=== PATIENT | female | born 1955 | race Native Hawaiian/Other Pacific Islander ===

== ENCOUNTER 2016-05-27 09:34 | Emergency (ER) | payer BC ==
[~2016-05-27] VITALS: Ht 172.7 cm; Wt 126.1 kg
[~2016-05-27 09:34] MED LIST: ADULT ASA81 MG OR; DEXL60CA4 PO; LISI20TA11 PO; SIMV20TA2 PO
[2016-05-27 09:45] VITALS: TEMP 97.8
[2016-05-27 10:10] LABS: PLATELET COUNT 239 K/uL (152-353)
[2016-05-27 10:24] LABS: POTASSIUM 3.9 mmol/L (3.6-5.2); SODIUM 137 mmol/L (136-145)
[2016-05-27 11:03] VITALS: BP 124/72
== END 2016-05-27 11:05 | disposition home or self-care (01) ==
LOC: ED 09:34
DX: R07.89 Other chest pain (principal)
CPT/HCPCS: 36415; 80053; 82550; 84484; 85027; 85610; 85730; 86318; 93005; 99283

== ENCOUNTER 2016-09-13 15:06 | Emergency (ER) | payer BC ==
[~2016-09-13] VITALS: Ht 172.7 cm; Wt 129.7 kg
[2016-09-13 15:10] VITALS: TEMP 98.3
[2016-09-13 15:55] LABS: PLATELET COUNT 220 K/uL (152-353)
[2016-09-13 16:09] LABS: POTASSIUM 4.4 mmol/L (3.6-5.2); SODIUM 136 mmol/L (136-145)
[2016-09-13 16:40] VITALS: BP 145/95
== END 2016-09-13 16:43 | disposition home or self-care (01) ==
LOC: ED 15:06
PROVIDERS: Family Medicine
DX: R33.9 Retention of urine, unspecified (principal); R10.2 Pelvic and perineal pain
CPT/HCPCS: 36415; 51702; 80053; 81000; 85027; 99283

== ENCOUNTER 2018-11-24 12:17 | Day surgery (SDC) | payer OTHER ==
[2018-11-24 13:39] LABS: PLATELET COUNT 144 K/uL (152-353)
[2018-11-24 14:09] LABS: POTASSIUM 4.4 mmol/L (3.6-5.2)
== END 2018-11-24 17:10 | disposition home or self-care (01) ==
LOC: OR 12:17
PROVIDERS: Internal Medicine Gastroenterology
PROC: 0DB68ZZ Excision of Stomach, Via Natural or Artificial Opening Endoscopic (ICD-10-PCS; principal; 2018-11-24)
PROC: 0DB88ZZ Excision of Small Intestine, Via Natural or Artificial Opening Endoscopic (ICD-10-PCS; 2018-11-24)
PROC: 0D758ZZ Dilation of Esophagus, Via Natural or Artificial Opening Endoscopic (ICD-10-PCS; 2018-11-24)
DX: K21.0 Gastro-esophageal reflux disease with esophagitis (principal); K22.4 Dyskinesia of esophagus; K22.2 Esophageal obstruction; K44.9 Diaphragmatic hernia without obstruction or gangrene; K25.9 Gastric ulcer, unspecified as acute or chronic, without hemorrhage or perforation; K29.50 Unspecified chronic gastritis without bleeding; K29.80 Duodenitis without bleeding; R13.19 Other dysphagia; R10.13 Epigastric pain
CPT/HCPCS: 80053; 82247; 82248; 85027; J2001; J2405; J2704; J2765

== ENCOUNTER 2020-12-09 08:39 | Emergency (ER) | payer OTHER, MEDICARE ==
[~2020-12-09] VITALS: Ht 172.7 cm; Wt 135.2 kg
[2020-12-09 08:44] VITALS: TEMP 98
[2020-12-09] MEDS ORDERED: PANTOPRAZOLE 40MG TA PO (09:17)
[2020-12-09] MEDS ORDERED: ASPIRIN 8181 MG PO (09:17)
[2020-12-09] MEDS ORDERED: METO50TA63 PO (09:18)
[2020-12-09] MEDS ORDERED: CENTRUM SILVER PO (09:18)
[2020-12-09 09:50] LABS: PLATELET COUNT 220 K/uL (152-353)
[2020-12-09 09:55] LABS: POTASSIUM 4.8 mmol/L (3.6-5.2); SODIUM 137 mmol/L (136-145)
[2020-12-09 10:12] LABS: PARTIAL THROMBOPLASTIN TIME 25.1 SECONDS (24.5-33.6)
[2020-12-09 10:59] VITALS: BP 130/63
== END 2020-12-09 11:10 | disposition home or self-care (01) ==
LOC: ED 08:39
PROVIDERS: Hospitalist
DX: K21.9 Gastro-esophageal reflux disease without esophagitis (principal); R07.89 Other chest pain; I10 Essential (primary) hypertension
CPT/HCPCS: 36415; 80053; 82550; 83880; 84484; 85027; 85610; 85730; 93005; 96374; 96375; 99284; J2270; J2765; J3490

== ENCOUNTER 2020-12-10 09:08 | Outpatient (CLI) | payer OTHER, MEDICARE ==
[~2020-12-10 09:08] MED LIST changes: +ASPIRIN 8181 MG PO; +CENTRUM SILVER PO; +METO50TA63 PO; +PANTOPRAZOLE 40MG TA PO
== END 2020-12-10 20:04 | disposition home or self-care (01) ==
LOC: LABW 09:08
PROVIDERS: ATTEND Internal Medicine Gastroenterology
DX: K76.0 Fatty (change of) liver, not elsewhere classified (principal)
CPT/HCPCS: 36415; 82172; 82247; 82465; 82947; 82977; 83010; 83883; 84450; 84460; 84478

== ENCOUNTER 2020-12-18 11:12 | Emergency (ER) | payer OTHER, MEDICARE ==
[~2020-12-18] VITALS: Ht 172.7 cm; Wt 135.2 kg
[2020-12-18 11:12] VITALS: TEMP 97.5
[2020-12-18 12:08] LABS: PLATELET COUNT 236 K/uL (152-353)
[2020-12-18 12:13] LABS: POTASSIUM 4.5 mmol/L (3.6-5.2); SODIUM 137 mmol/L (136-145)
[2020-12-18 14:39] VITALS: BP 158/75
== END 2020-12-18 14:40 | disposition short-term general hospital (02) ==
LOC: ED 11:12
PROVIDERS: Emergency Medicine Emergency Medical Services
DX: I20.0 Unstable angina (principal)
CPT/HCPCS: 36415; 80053; 83735; 84484; 85027; 85379; 85610; 87635; 93005; 96360; 99284; U0003

== ENCOUNTER 2021-01-15 09:58 | Outpatient (CLI) | payer OTHER, MEDICARE | END 2021-01-15 18:57 | disposition home or self-care (01) | LOC: RAD 09:58 | PROVIDERS: ATTEND Nurse Practitioner Primary Care | DX: R07.81 Pleurodynia (principal) ==

== ENCOUNTER 2021-02-01 08:01 | Outpatient (CLI) | payer OTHER, MEDICARE | END 2021-02-01 18:56 | disposition home or self-care (01) | LOC: MAMMO 08:01 | PROVIDERS: ATTEND Family Medicine | DX: M81.0 Age-related osteoporosis without current pathological fracture (principal); Z12.31 Encounter for screening mammogram for malignant neoplasm of breast ==

== ENCOUNTER 2021-06-06 14:24 | Outpatient (CLI) | payer OTHER, MEDICARE | END 2021-06-06 21:29 | disposition home or self-care (01) | LOC: RAD 14:24 | PROVIDERS: ATTEND Nurse Practitioner Family | DX: M25.552 Pain in left hip (principal) ==

== ENCOUNTER 2021-06-10 14:18 | Outpatient (CLI) | payer OTHER, MEDICARE | END 2021-06-10 20:16 | disposition home or self-care (01) | LOC: RAD 14:18 | PROVIDERS: ATTEND Nurse Practitioner Family | DX: M17.11 Unilateral primary osteoarthritis, right knee (principal) ==

== ENCOUNTER 2021-08-08 16:09 | Outpatient (CLI) | payer OTHER, MEDICARE | END 2021-08-08 19:18 | disposition home or self-care (01) | LOC: US 16:09 | PROVIDERS: ATTEND Nurse Practitioner Primary Care | DX: M79.604 Pain in right leg (principal) ==

== ENCOUNTER 2021-10-16 09:04 | Outpatient (CLI) | payer OTHER, MEDICARE | END 2021-10-16 19:35 | disposition home or self-care (01) | LOC: RAD 09:04 | PROVIDERS: ATTEND Nurse Practitioner Family | DX: E66.01 Morbid (severe) obesity due to excess calories (principal); Z68.42 Body mass index [BMI] 45.0-49.9, adult; D68.59 Other primary thrombophilia; Z86.79 Personal history of other diseases of the circulatory system; I10 Essential (primary) hypertension; K76.0 Fatty (change of) liver, not elsewhere classified; K21.9 Gastro-esophageal reflux disease without esophagitis; Z09 Encounter for follow-up examination after completed treatment for conditions other than malignant neoplasm ==

== ENCOUNTER 2021-11-05 08:52 | Outpatient (CLI) | payer OTHER, MEDICARE ==
[2021-11-05 09:23] LABS: PLATELET COUNT 225 K/uL (152-353)
[2021-11-05 09:57] LABS: POTASSIUM 4.5 mmol/L (3.6-5.2)
== END 2021-11-05 19:27 | disposition home or self-care (01) ==
LOC: LABW 08:52
PROVIDERS: ATTEND Nurse Practitioner Primary Care
DX: Z01.818 Encounter for other preprocedural examination (principal)
CPT/HCPCS: 36415; 80053; 85027

== ENCOUNTER 2022-05-26 08:22 | Outpatient (CLI) | payer OTHER, MEDICARE ==
[2022-05-26 08:51] LABS: PLATELET COUNT 176 K/uL (152-353)
[2022-05-26 09:12] LABS: POTASSIUM 3.9 mmol/L (3.6-5.2)
== END 2022-05-26 19:36 | disposition home or self-care (01) ==
LOC: LABW 08:22
PROVIDERS: ATTEND Nurse Practitioner
DX: E53.8 Deficiency of other specified B group vitamins (principal); E61.1 Iron deficiency; E87.8 Other disorders of electrolyte and fluid balance, not elsewhere classified; E20.0 Idiopathic hypoparathyroidism; E51.9 Thiamine deficiency, unspecified; E61.0 Copper deficiency; E55.9 Vitamin D deficiency, unspecified; E78.49 Other hyperlipidemia
CPT/HCPCS: 36415; 80053; 80061; 82306; 82607; 82728; 82747; 83970; 84425; 85027

== ENCOUNTER 2022-06-20 07:07 | Observation (INO) | payer OTHER, MEDICARE ==
[~2022-06-20] VITALS: Ht 170.2 cm; Wt 105.9 kg
[2022-06-20] VITALS (8 sets, daily range): BP systolic 101–149; BP diastolic 50–70; TEMP 97.4–98.4; Ht 170.2 cm; Wt 105.9 kg
[2022-06-20 07:42] LABS: PLATELET COUNT 191 K/uL (152-353)
[2022-06-20 07:57] LABS: POTASSIUM 4.4 mmol/L (3.6-5.2); SODIUM 138 mmol/L (136-145)
[2022-06-20 10:01] LABS: PARTIAL THROMBOPLASTIN TIME 31.3 SECONDS (23.9-36.7)
[2022-06-20] MEDS ORDERED: METO25TA2 PO (12:15)
[2022-06-20] MEDS ORDERED: LIPITOR40 MG PO (12:16)
[2022-06-20] MEDS ORDERED: CALCI21 PO (12:16)
[2022-06-20] MEDS ORDERED: B12 PO (12:17)
[2022-06-20] MEDS ORDERED: RELAXIUM PO (12:18)
[2022-06-20] MEDS ORDERED: NITR0.4S2 SL (12:19)
[2022-06-20] MEDS ORDERED: MULTIVITAMI1 PO (12:21)
[2022-06-21 03:36] VITALS: BP 101/49; TEMP 97.5
[2022-06-21 08:00] VITALS: BP 134/48; TEMP 97.8
[2022-06-21] MEDS ORDERED: PRED20TA27 PO (11:17)
[2022-06-21] MEDS ORDERED: PANTOPRAZOLE 40MG TA PO (11:17)
== END 2022-06-21 12:13 | disposition home or self-care (01) ==
LOC: ED 07:07 → MED/SURG 09:56
PROVIDERS: Emergency Medicine; ADMIT Internal Medicine; ATTEND Internal Medicine
DX: R07.89 Other chest pain (principal); I25.10 Atherosclerotic heart disease of native coronary artery without angina pectoris; M06.8A Other specified rheumatoid arthritis, other specified site; I10 Essential (primary) hypertension; E66.8 Other obesity; Z68.36 Body mass index [BMI] 36.0-36.9, adult
CPT/HCPCS: 36415; 80053; 81002; 84484; 85027; 85379; 85610; 85652; 85730; 86140; 93005; 96372; 96374; 96375; 96376; 99221; 99284; G0378; J1650; J1885; J2270; J2405; Q9963

== ENCOUNTER → 2022-07-22 | Outpatient (CLI) | payer OTHER, MEDICARE ==
[~2022-07-22] MED LIST changes: +B12 PO; +CALCI21 PO; +LIPITOR40 MG PO; +METO25TA2 PO; +MULTIVITAMI1 PO; +NITR0.4S2 SL; +PRED20TA27 PO; +RELAXIUM PO
[2022-07-22 16:47] LABS: PLATELET COUNT 174 K/uL (152-353)
[2022-07-22 17:09] LABS: POTASSIUM 3.9 mmol/L (3.6-5.2)
== END ==
LOC: LABW 16:30
PROVIDERS: ATTEND Nurse Practitioner Family
DX: I10 Essential (primary) hypertension (principal)
CPT/HCPCS: 36415; 80053; 85027

== ENCOUNTER 2022-09-04 07:58 | Observation (INO) | payer OTHER, MEDICARE ==
[2022-09-04] VITALS (11 sets, daily range): BP systolic 97–174; BP diastolic 43–90; TEMP 97.6–98.6; Ht 170.2 cm; Wt 101.4 kg
[~2022-09-04] VITALS: Ht 170.2 cm; Wt 101.4 kg
[~2022-09-04 07:58] MED LIST changes: +ASPIRIN 81 LOW81 MG PO; -ASPIRIN 8181 MG PO
[2022-09-04 08:27] LABS: PLATELET COUNT 157 K/uL (152-353)
[2022-09-04 08:36] LABS: POTASSIUM 4.3 mmol/L (3.6-5.2); SODIUM 135 mmol/L (136-145)
[2022-09-04] MEDS ORDERED: SIMBRINZA OPTH (15:01)
[2022-09-04] MEDS ORDERED: MAXITROL0.1 % OPTH (15:02)
[2022-09-04] MEDS ORDERED: [UNRECOGNIZED DRUG - OTHER] OPTH (18:30)
[2022-09-05 03:35] VITALS: BP 101/52; TEMP 97.6
[2022-09-05 05:58] LABS: PLATELET COUNT 188 K/uL (152-353)
[2022-09-05 06:05] LABS: POTASSIUM 4.2 mmol/L (3.6-5.2)
[2022-09-05 08:00] VITALS: BP 110/49; TEMP 97.8
== END 2022-09-05 10:01 | disposition home or self-care (01) ==
LOC: ED 07:58 → MED/SURG 10:06 → ED 13:40 → MED/SURG 09-05 10:01
PROVIDERS: Family Medicine; ADMIT Nurse Practitioner Family; ATTEND Internal Medicine Endocrinology, Diabetes & Metabolism
DX: R07.89 Other chest pain (principal); I25.10 Atherosclerotic heart disease of native coronary artery without angina pectoris; Z95.5 Presence of coronary angioplasty implant and graft; E78.5 Hyperlipidemia, unspecified; Z86.73 Personal history of transient ischemic attack (TIA), and cerebral infarction without residual deficits; Z79.82 Long term (current) use of aspirin; I10 Essential (primary) hypertension; K21.9 Gastro-esophageal reflux disease without esophagitis; K58.9 Irritable bowel syndrome, unspecified; E55.9 Vitamin D deficiency, unspecified; M06.9 Rheumatoid arthritis, unspecified; Z88.0 Allergy status to penicillin; Z88.2 Allergy status to sulfonamides; Z88.5 Allergy status to narcotic agent; Z88.8 Allergy status to other drugs, medicaments and biological substances
CPT/HCPCS: 80048; 80053; 84484; 85027; 85379; 93005; 96372; 96374; 96375; 96376; 99221; 99284; G0378; J1100; J1650; J1885; J2270; J2405